=== PATIENT | female | born 1975 | race Caucasian/White ===

== ENCOUNTER 2020-10-09 11:44 | Outpatient (CLI) | payer OTHER, SELFPAY | END 2020-10-09 11:45 | disposition home or self-care (01) | PROVIDERS: PCP Family Medicine; Referring Provider Internal Medicine Gastroenterology; Visit Provider Internal Medicine Critical Care Medicine | DX: R19.4 Change in bowel habit (principal); R14.3 Flatulence; R10.84 Generalized abdominal pain; G25.81 Restless legs syndrome | CPT/HCPCS: 36415; 82728; 86003 ==

== ENCOUNTER 2020-11-04 08:39 | Outpatient (CLI) | payer OTHER, SELFPAY ==
--- NOTE | 2020-12-02 11:25 | WPDHOMESLEEP ---
Sleep Study - Home Unattended Date of Study: 11/04/20 Ordering Provider: Aleshia Johnson MD Interpreting Provider: Aleshia Johnson MD Home Sleep Study Type: Apnea Link Air Height: 1.6 m Weight: 65.771 kg Body Mass Index: 25.7 Neck Circumference (inches): 13 [place]: 0 Reason for Sleep Study Insomnia, anxiety, difficulty falling asleep Sleep History Jasmine Byrd is a 45 year old female with difficulty falling asleep. She has a weighted blanket, uses a calm meditation kai on her phone to help go to sleep, And uses several different medications including alprazolam 0.75 mg, zolpidem ER 12.5 mg, Benadryl p.m. 1 or 2 of these as needed and sertraline 150 mg a day for anxiety. She rotates the medications. She wakes up throughout the night and has excessive daytime sleepiness. She rarely awakens from sleep feeling short of breath. She constantly awakens at night with heartburn, belching or coughing. She occasionally snores per her . She does not snore loudly enough that others complain on a regular basis. When she was young she experienced sleep walking and vivid dreams with nighttime hallucinations from the age of 3 until age of 28. As an older person between 28 and the present time she wakes up easily, she is a light sleeper and does not feel rested in the morning. She has insomnia. She takes various medications to help her go to sleep. When her insomnia severe it is almost debilitating she frequently has trouble sleeping the cold. She rarely gasps for breath at night maybe once or 2 times a month. She frequently sweats excessively at night. She rarely notices her heart pounding irregularly at night. She does not fall asleep during the day, does not fall asleep involuntarily or while driving. She does not have loss of muscle tone with strong emotion. She occasionally has daytime difficulties due to excessive sleepiness. She rarely feels paralyzed on waking or falling asleep. She occasionally has vivid dreamlike scenes upon awakening or falling asleep. She occasionally feels afraid to go to sleep. She occasionally has nightmares. She occasionally remembers her dreams and occasionally has racing thoughts. She rarely feels sad or depressed. She occasionally has anxiety. She occasionally has muscular tension. She rarely notices parts of her body jerking. She frequently kicks at night, frequently has crawling aching feelings in her legs and frequently has leg pain at night. She rarely has morning jaw pain. She occasionally grinds her teeth during sleep. She rarely has bothered by pain during the day and rarely awakened by pain at night. She occasionally wakes up feeling stiff in the morning with sore achy muscles. She rarely has pain in the neck and spine. She has a very intense job. she takes antacids regularly, has bowel disturbances and nightmares. Normal bedtime between 9:00 p.m. and 10:00 p.m. falling asleep within 30 minutes if she takes medicines to help get to sleep. She wakes 1-3 times at night, tries not to look at the clock but sometimes if she cannot get back to sleep she does get up. Weekend schedule is the same. She does not take naps. She always feels tired throughout the day. She feels feels better in the morning compared to other times a day. Habits: Never smoked tobacco. Caffeine 1 cup in the morning. One bottle of wine per week. No recreational drugs. [facility] Past Medical History Medical History (Updated 12/02/20 @ 11:35 by Aleshia Johnson MD) Anxiety Parasomnia Restless legs syndrome Surgical History Surgical History H/O bladder repair surgery (~2018) Hx of cholecystectomy (~2009) Family History Family History Father Cancer Mother Depression Thyroid activity decreased Grandparent Alcoholism Cancer Diabetes mellitus Hypertension Grandparent Alcoholism Cancer
[2020-12-02 11:32] VITALS: BMI 25.7
== END 2020-11-05 10:41 | disposition home or self-care (01) ==
LOC: ANHCSM 08:41
PROVIDERS: PCP Family Medicine; Visit Provider Internal Medicine Critical Care Medicine
DX: G47.00 Insomnia, unspecified (principal)
CPT/HCPCS: 95806

== ENCOUNTER 2021-03-04 17:29 | Outpatient (CLI) | payer OTHER, SELFPAY ==
--- NOTE | ~2021-03-04 | MM_ITS ---
EXAMINATION: MM screening nury BI w prince HISTORY: Screening mammogram TECHNIQUE: Craniocaudal and mediolateral oblique 3-D tomosynthesis images were obtained and synthetic 2-D images were generated. CAD analysis was submitted and interpreted. COMPARISON: 03/17/2019 bilateral screening mammogram 03/16/2017 diagnostic right mammogram and complete right breast ultrasound 02/18/2017 bilateral screening mammogram BREAST PARENCHYMAL COMPOSITION: There are scattered areas of fibroglandular density. FINDINGS: New 2.9 x 4.2 mm circumscribed opacity in upper outer quadrant of the right breast. Diagnos tic right mammogram and right breast ultrasound examination are recommended. Otherwise there is no evidence of suspicious mass, calcification, or architectural distortion to sugg est malignancy in either breast. There has been no other significant interval change. IMPRESSION: 1. New 2.9 x 4.2 mm circumscribed mass in upper outer right breast 2. Diagnostic right mammogram and targeted upper outer quadrant breast ultrasound examination are rec ommended BI-RADS Category 0: Incomplete: Needs additional imaging evaluation. Reviewed, dictated and finalized at location A. 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 New 2.9 x 4.2 mm circumscribed mass in upper outer right breast 2. Diagnostic right mammogram and targeted upper outer quadrant breast ultrasou nd examination are recommended BI-RADS Category 0: Incomplete: Needs additional imaging evaluation.
== END 2021-03-04 17:30 | disposition home or self-care (01) ==
LOC: ANHIMG 17:31
PROVIDERS: PCP Family Medicine; Visit Provider Obstetrics & Gynecology
DX: Z12.31 Encounter for screening mammogram for malignant neoplasm of breast (principal); R92.8 Other abnormal and inconclusive findings on diagnostic imaging of breast
CPT/HCPCS: 77063; 77067

== ENCOUNTER 2021-03-24 07:51 | Outpatient (CLI) | payer OTHER, SELFPAY ==
--- NOTE | 2021-04-14 14:27 | WPDSLEEPSTUD ---
Sleep Study Date of Study: 03/24/21 <Stephany Gallagher DO - Last Filed: 04/15/21 11:41> Ordering Provider: Aleshia Johnson MD <Stephany Gallagher DO - Last Filed: 04/15/21 11:41> Interpreting Physician: Stephany Gallagher DO <Stephany Gallagher DO - Last Filed: 04/15/21 11:41> Sleep Study Type: Polysomnogram <Stephany Gallagher DO - Last Filed: 04/15/21 11:41> Height: 1.61 m <Stephany Gallagher DO - Last Filed: 04/15/21 11:41> Weight: 68.039 kg <Stephany Gallagher DO - Last Filed: 04/15/21 11:41> Body Mass Index: 26.2 <Stephany Gallagher DO - Last Filed: 04/15/21 11:41> Neck Circumference (inches): 11.5 <Stephany Gallagher DO - Last Filed: 04/15/21 11:41> [place]: 6 <Stephany Gallagher DO - Last Filed: 04/15/21 11:41> Reason for Sleep Study 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 She had a HSAT done on 11/04/2020 that showed an AHI of 1.4. It was recommended that she have an in-lab PSG. <Stephany Gallagher DO - Last Filed: 04/15/21 11:41> Sleep History Jasmine Bryd is a 45 year old female with difficulty falling asleep. She has a weighted blanket, uses a calm meditation kai on her phone to help go to sleep and uses several different medications including alprazolam 0.75 mg, zolpidem ER 12.5 mg, Benadryl p.m. 1 or 2 of these as needed and sertraline 150 mg a day for anxiety. She rotates the medications. She wakes up throughout the night and has excessive daytime sleepiness. She rarely awakens from sleep feeling short of breath. She constantly awakens at night with heartburn, belching or coughing. She occasionally snores per her . She does not snore loudly enough that others complain on a regular basis. When she was young she experienced sleep walking and vivid dreams with nighttime hallucinations from the age of 3 until age of 28. As an older person between 28 and the present time she wakes up easily, she is a light sleeper and does not feel rested in the morning. She has insomnia. She takes various medications to help her go to sleep. When her insomnia severe it is almost debilitating she frequently has trouble sleeping the cold. She rarely gasps for breath at night maybe once or 2 times a month. She frequently sweats excessively at night. She rarely notices her heart pounding irregularly at night. She does not fall asleep during the day, does not fall asleep involuntarily or while driving. She does not have loss of muscle tone with strong emotion. She occasionally has daytime difficulties due to excessive sleepiness. She rarely feels paralyzed on waking or falling asleep. She occasionally has vivid dreamlike scenes upon awakening or falling asleep. She occasionally feels afraid to go to sleep. She occasionally has nightmares. She occasionally remembers her dreams and occasionally has racing thoughts. She rarely feels sad or depressed. She occasionally has anxiety. She occasionally has muscular tension. She rarely notices parts of her body jerking. She frequently kicks at night, frequently has crawling aching feelings in her legs and frequently has leg pain at night. She rarely has morning jaw pain. She occasionally grinds her teeth during sleep. She rarely has bothered by pain during the day and rarely awakened by pain at night. She occasionally wakes up feeling stiff in the morning with sore achy muscles. She rarely has pain in the neck and spine. She has a very intense job. she takes antacids regularly, has bowel disturbances and nightmares. Normal bedtime between 9:00 p.m. and 10:00 p.m. falling asleep within 30 minutes if she takes medicines to help get to sleep. She wakes 1-3 times at night, tries not to look at the clock but sometimes if she cannot get back to sleep she does get up. Weekend schedule is the same. She does not take naps. She always feels tired throughout the day. She feels fee
[2021-04-15 11:17] VITALS: BMI 26.2
== END 2021-03-25 06:14 | disposition home or self-care (01) ==
LOC: ANHCSM 07:52
PROVIDERS: PCP Family Medicine; Visit Provider Internal Medicine Critical Care Medicine
DX: G47.00 Insomnia, unspecified (principal); G25.81 Restless legs syndrome
CPT/HCPCS: 95810

== ENCOUNTER 2021-03-25 12:57 | Outpatient (CLI) | payer OTHER, SELFPAY ==
--- NOTE | ~2021-03-25 | MM_ITS ---
EXAMINATION: MM diagnostic nury RT w prince HISTORY: Right breast mass on screening mammogram TECHNIQUE: Additional 3-D tomosynthesis images of the right breast were performed and synthetic 2-D i mages were generated. CAD analysis was submitted and interpreted. COMPARISON: 03/04/2021, 03/17/2019, 03/16/2017 BREAST PARENCHYMAL COMPOSITION: There are scattered areas of fibroglandular density. FINDINGS: Spot compression images demonstrate right breast mass described on screening mammogram to b e stable when compared to prior mammograms. There has been no suspicious interval change. IMPRESSION: 1. No mammographic evidence of malignancy. 2. Recommend routine screening mammography in one year. BI-RADS Category 2: Benign finding(s). Reviewed, dictated and finalized at location A. FOLIO CONSULTANT
== END 2021-03-25 12:58 | disposition home or self-care (01) ==
PROVIDERS: PCP Family Medicine; Visit Provider Obstetrics & Gynecology
DX: R92.8 Other abnormal and inconclusive findings on diagnostic imaging of breast (principal)
CPT/HCPCS: 77061; 77065; G0279

== ENCOUNTER 2021-07-09 13:20 | Outpatient (CLI) | payer OTHER, SELFPAY ==
--- NOTE | ~2021-07-09 | XR_ITS ---
EXAMINATION: XR finger 3rd RT min 2V DATE: 07/09/2021 13:51 INDICATION: Swelling at the third proximal interphalangeal joint TECHNIQUE: Dorsal palmar, lateral and 2 oblique views of the third digit were obtained COMPARISON: None FINDINGS: Bone alignment is normal. No fracture. 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 Tiny corticated ossicle at the radial base of the third middle phalanx which coul d be either degenerative or related to old trauma. Associated mild radial sided soft tissue swelling at the proximal interphalangeal joint. IMPRESSION: 1. 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 No acute osseous abnormality. Reviewed, dictated and finalized at location B. IMPRESSION: 1. 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 No acute osseo us abnormality.
--- NOTE | ~2021-07-09 | XR_ITS ---
EXAMINATION: XR chest 2V DATE: 07/09/2021 13:50 INDICATION: Left-sided chest pain TECHNIQUE: PA and lateral views of the chest were obtained. COMPARISON: Chest radiograph dated 04/24/2010 FINDINGS: The lungs remain clear with no focal airspace opacities, pulmonary edema, pleural effusion or pneumot horax. The cardiomediastinal silhouette is normal. Mild thoracic dextrocurvature with mild spondylosi s. IMPRESSION: 1. No acute cardiopulmonary disease. Reviewed, dictated and finalized at location B.
--- NOTE | 2021-07-09 14:03 | ECG_ITS ---
Measurements Intervals [place] Rate: 69 P: -5 ME: 127 QRS: 2 QRSD: 94 T: 50 QT: 429 QTc: 461 Interpretive Statements SINUS RHYTHM POSSIBLE RIGHT VENTRICULAR CONDUCTION DELAY [RSR (QR) IN V1/V2] NONSPECIFIC ST & T-WAVE ABNORMALITY BASELINE ARTIFACT COMPARED TO ECG 02/20/2019 16:03:48 NO SIGNIFICANT CHANGE Electronically Signed On 07-09-2021 14:29:15 CDT by Millicent Vaca M.D.
== END 2021-07-09 13:21 | disposition home or self-care (01) ==
PROVIDERS: PCP Family Medicine; Visit Provider Physician Assistant Medical
DX: R07.89 Other chest pain (principal); M25.50 Pain in unspecified joint; M19.041 Primary osteoarthritis, right hand; M47.814 Spondylosis without myelopathy or radiculopathy, thoracic region
CPT/HCPCS: 71046; 73140; 93005

== ENCOUNTER 2021-07-10 09:57 | Outpatient (CLI) | payer OTHER, SELFPAY ==
[2021-07-10 10:39] LABS: Alanine Aminotransferase 22 U/L (4-35); Albumin Level 4.9 g/dL (3.5-5.1); Alkaline Phosphatase 92 U/L (38-126); Anion Gap 7 mmol/L (8-16); Aspartate Amino Transferase 33 U/L (14-36); Bilirubin,Total 0.7 mg/dL (0.2-1.3); Blood Urea Nitrogen 12 mg/dL (7-17); CRP < 0.5 mg/dL (<1.0); Calcium 9.5 mg/dL (8.4-10.2); Carbon Dioxide 28 mmol/L (22-30); Chloride 103 mmol/L (98-107); Cholesterol 219 mg/dL (0-200); Estimated Glomerular Filt Rate > 60; Glucose 97 mg/dL (65-110); HDL Direct 42 mg/dL; Potassium 4.5 mmol/L (3.4-5.0); Sodium 138 mmol/L (137-145); Triglycerides 76 mg/dL (<150)
[2021-07-10 10:43] LABS: Add Urine Microscopic? YES; Appearance Urine Clear (Clear); Bacteria Urine Trace /hpf; Bilirubin Urine Negative (Negative); Blood Urine 1+ (Negative); Color Urine Straw (Yellow); Glucose Urine UA Negative (Negative); Ketones Urine Negative (Negative); Leukocyte Esterase Ur Negative LEU/UL (Negative); Mucus Urine Rare /lpf; Nitrate Urine Negative (Negative); Protein Urine Negative (Negative); RBC Urine 0-2 /hpf (0-2); Specific Grav Ur 1.005 (1.001-1.035); Squamous Epithelial Cell Urine Rare /hpf (Few); Urobilinogen Urine Negative mg/dL (<2.0); WBC Urine 0-3 /hpf
[2021-07-10 10:48] LABS: LDL Cholesterol Direct 136 mg/dL
[2021-07-10 10:55] LABS: Erythrocyte Sedimentation Rate 15 mm/hr (0-20)
[2021-07-10 11:06] LABS: Rheumatoid Factor < 8.6 IU/ML (<12)
== END 2021-07-10 09:58 | disposition home or self-care (01) ==
LOC: ANHLAB 09:59
PROVIDERS: PCP Family Medicine; Visit Provider Physician Assistant Medical
DX: M25.50 Pain in unspecified joint (principal); E78.2 Mixed hyperlipidemia; R53.83 Other fatigue
CPT/HCPCS: 36415; 80053; 80061; 81001; 82306; 82607; 84443; 85652; 86038; 86140; 86430

== ENCOUNTER → 2022-03-31 11:53 | Outpatient (CLI) | payer OTHER, BC, SELFPAY ==
--- NOTE | ~2022-03-31 | XR_ITS ---
Left Knee Technique: AP, lateral, and sunrise views were obtained. Clinical History: Pain Findings: No fracture or dislocation is seen. Osseous alignment is anatomic. Joint spaces are preserv ed without degenerative or erosive change. Soft tissues are unremarkable. No joint effusion is seen. Impression: Unremarkable left knee radiographs. Reviewed, dictated and finalized at location . 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
== END ==
PROVIDERS: PCP Physician Assistant Medical; Visit Provider Physician Assistant Medical
DX: M25.562 Pain in left knee (principal)
CPT/HCPCS: 73562

== ENCOUNTER 2023-10-14 15:44 | Outpatient (CLI) | payer OTHER, SELFPAY ==
--- NOTE | ~2023-10-14 | MM_ITS ---
EXAMINATION: MM screening nury BI w prince HISTORY: Screening TECHNIQUE: Craniocaudal and mediolateral oblique 3-D tomosynthesis images were obtained and synthetic 2-D images were generated. CAD analysis was submitted and interpreted. COMPARISON: Comparison to multiple prior studies sequentially, with oldest reviewed study dated 02/03. BREAST PARENCHYMAL COMPOSITION: Not dense: There are scattered areas of fibroglandular density. FINDINGS: There is no evidence of suspicious mass, calcification, or architectural distortion to sugg est malignancy in either breast. There has been no suspicious interval change. IMPRESSION: 1. No mammographic evidence of malignancy. 2. Recommend routine screening mammography in one year. BI-RADS Category 1: Negative Reviewed, dictated and finalized at location B.
== END 2023-10-14 15:45 | disposition home or self-care (01) ==
LOC: ANHIMG 15:46
PROVIDERS: PCP Family Medicine; Visit Provider Obstetrics & Gynecology
DX: Z12.31 Encounter for screening mammogram for malignant neoplasm of breast (principal)
CPT/HCPCS: 77063; 77067